=== PATIENT | female | born 2000 | race Two or more races ===

== ENCOUNTER 2020-12-18 12:42 | Observation (INO) | payer MEDICAID, OTHER ==
[2020-12-18] MEDS ORDERED: PREN-96 PO (14:53)
== END 2020-12-18 15:14 | disposition home or self-care (01) ==
LOC: LDRP 12:42
PROVIDERS: ADMIT Obstetrics & Gynecology; ATTEND Obstetrics & Gynecology
DX: O26.893 Other specified pregnancy related conditions, third trimester (principal); R10.9 Unspecified abdominal pain; Z3A.32 32 weeks gestation of pregnancy
CPT/HCPCS: 59025; 76805; 76817; 81002; 84112; 94760; G0378; G0379; Q0114

== ENCOUNTER 2021-02-03 13:40 | Inpatient (IN) | payer MEDICAID ==
[~2021-02-03] VITALS: Ht 152.4 cm; Wt 59.0 kg
[~2021-02-03 13:40] MED LIST: PREN-96 PO
[2021-02-03] MEDS ORDERED: DERMOPLAST 60ML BOTTLE TOP PRN (16:00)
[2021-02-03] MEDS ORDERED: LIDOCAINE 2%HCL (LOCAL ANESTH.) INJ 20ML MDV IJ PRN ×2 (16:00→17:15)
[2021-02-03] MEDS ORDERED: PHISODERM TOP SOLN 240ML BTL TOP PRN ×2 (16:00→17:15)
[2021-02-03] MEDS ORDERED: WITCH HAZEL-GLYCERIN PAD TOP PRN ×2 (16:00→17:15)
[2021-02-03] MEDS ORDERED: PENICILLIN G POT 5MIL/D5 50ML 50 ML IV ONE (16:00)
[2021-02-03] MEDS ORDERED: BUTORPHANOL TARTRATE 2 MG/1 ML VIAL ONE (16:18)
[2021-02-03] MEDS ORDERED: LACT. RINGERS/OXYTOCIN 20UNITS 500 ML IV ONE ×2 (16:30→17:00)
[2021-02-03] MEDS: LACTATED RINGER'S 1,000 ML IV SCH ×2 (16:40→17:31)
[2021-02-03] MEDS ORDERED: PROMETHAZINE HCL 25 MG/ML 1ML IV PRN (17:15)
[2021-02-03] MEDS ORDERED: LACTATED RINGER'S 1,000 ML IV SCH (17:15)
[2021-02-03] MEDS ORDERED: BUTORPHANOL TARTRATE 2 MG/1 ML VIAL IV PRN ×2 (17:15)
[2021-02-03 17:21] LABS: Basophils # (auto) 0 10 ^3/uL (0-0.2); Eosinophils # (auto) 0 10 ^3/uL (0-0.8); Hemoglobin 8.4 g/dL (12.2-16.2); Lymphocytes # (auto) 0.7 10 ^3/uL (0.4-5.4)
[2021-02-03 17:23] LABS: Basophils % (auto) 0.4 % (0.0-2.0); Hematocrit 27.6 % (36.0-46.0); Lymphocytes % (auto) 4.9 % (10.0-50.0); Mean Corpuscular Hemoglobin 17.5 pg (28.0-32.0); Mean Corpuscular Hgb Conc. 30.2 g/dL (32.0-36.0); Mean Corpuscular Volume 57.8 fL (80.0-100.0); Monocytes # (auto) 0.5 10 ^3/uL (0-1.3); Monocytes % (auto) 3.3 % (0.0-12.0); Neutrophils # (auto) 12.7 10 ^3/uL (1.6-8.6); Neutrophils % (auto) 91.4 % (37.0-80.0); Nucleated Red Blood Cells % 0.1 %; Red Blood Cells 4.78 10^6/uL (4.0-5.20); Red Cell Distribution Width 18.5 % (11.8-14.3); White Blood Cell 13.9 10^3/uL (4.4-10.8)
[2021-02-03 17:36] LABS: Albumin 2.9 g/dL (3.4-5.0); BUN/Creatinine Ratio 10.7; Calcium 8.8 mg/dL (8.5-10.1); Potassium 3.9 mmol/L (3.5-5.1)
[2021-02-03 17:38] LABS: Bilirubin, Total 0.7 mg/dL (0.2-1.0); Total Protein 7.4 g/dL (6.4-8.2)
[2021-02-03 17:42] LABS: Urine Bacteria FEW /hpf (None Seen); Urine Blood 2+ /uL (Negative); Urine Budding Yeast FEW /hpf (None Seen); Urine Mucus FEW (None Seen); Urine Specific Gravity 1.027 (1.001-1.035); Urine WBC 128 /hpf (0 - 5)
[2021-02-03 17:42] LABS: INR 0.99 (0.9-1.15); Partial Thromboplastin Time 24.8 sec (23.6-33.0)
[2021-02-03 17:43] LABS: Alcohol, Urine < 3.0 mg/dL (0-10); Amphetamine Screen, Urine NEGATIVE (NEGATIVE); Barbiturate Scree,Urine NEGATIVE (NEGATIVE); Benzodiazephine Screen, Urine NEGATIVE (NEGATIVE); Cannabinoid Screen, Urine POSITIVE (NEGATIVE); Cocaine Screen, Urine NEGATIVE (NEGATIVE); Opiate Scree,Urine NEGATIVE (NEGATIVE); Phencyclidine Screen, Urine NEGATIVE (NEGATIVE)
[2021-02-03] MEDS ORDERED: LIDOCAINE HCL 2 %PF INJ 10ML AMP IJ ONE (18:15)
[2021-02-03] MEDS ORDERED: LIDOCAINE 2%HCL (LOCAL ANESTH.) INJ 20ML MDV IJ ONE (18:15)
[2021-02-03] MEDS ORDERED: NALOXONE HCL 0.4 MG/ML VIAL IV ONE ×2 (18:15→19:30)
[2021-02-03] MEDS ORDERED: ePHEDrine SULFATE 50 MG/ML AMP IV ONE ×2 (18:15→19:30)
[2021-02-03] MEDS ORDERED: ROPIVACAINE HCL 200 ML EPI SCH (18:15)
[2021-02-03] MEDS ORDERED: fentaNYL CITRATE 100 MCG/2 ML VL IV ONE (18:15)
[2021-02-03] MEDS ORDERED: LIDOCAINE 1%-Mpf/Epinephrine 1:200,000 IJ ONE (18:15)
[2021-02-03] MEDS ORDERED: LACTATED RINGER'S 500 ML IV ONE (19:30)
[2021-02-03] MEDS ORDERED: SODIUM CHLORIDE 0.9% 500 ML IV PRN (19:30)
[2021-02-03] MEDS ORDERED: PENICILLIN G POTASSIUM 2,500,000 UNITS in D5W 5% 50 ML IV SCH ×2 (20:00→21:15)
[2021-02-03] MEDS ORDERED: PENICILLIN G POT 5MILLION UNIT VIAL ONE (22:17)
[2021-02-03] MEDS ORDERED: STERILE WATER 10 ML ONE (22:18)
[2021-02-03] MEDS ORDERED: LACT. RINGERS/OXYTOCIN 20UNITS 1,000 ML IV SCH (23:15)
[2021-02-04] MEDS ORDERED: ONDANSETRON ODT 4 MG TAB PO PRN (01:00)
[2021-02-04] MEDS: IBUPROFEN 800 MG TAB PO SCH ×2 (03:38→09:37)
[2021-02-04 06:06] LABS: RPR Non Reactive (Non Reactive)
[2021-02-04 06:30] VITALS: BP 98/56
[2021-02-04] MEDS ORDERED: FERROUS SULFATE 325mg EC TAB PO SCH (07:00)
[2021-02-04 07:07] LABS: Rubella Antibodies, IgG 1.13 index (Immune >0.99)
[2021-02-04] MEDS: FERROUS SULFATE 325mg EC TAB PO SCH (09:38)
[2021-02-04 10:57] VITALS: BP 96/62
[2021-02-04] MEDS ORDERED: TETANUS-DIPTH-ACEL PERTUSSIS 0.5ML SYR Tdap IM ONE (13:45)
[2021-02-04] MEDS: ACETAMINOPHEN 325 MG TAB PO PRN (14:01)
[2021-02-04 15:00] VITALS: BP 98/62
[2021-02-04] MEDS: IBUPROFEN 600 MG TAB PO SCH ×2 (15:00→21:32)
[2021-02-04 19:00] VITALS: BP 94/63
[2021-02-04] MEDS ORDERED: DOCUSATE SOD 100 MG CAP PO SCH (22:00)
[2021-02-04 22:30] VITALS: BP 95/56
[2021-02-05 03:00] VITALS: BP 91/62
[2021-02-05] MEDS: IBUPROFEN 600 MG TAB PO SCH ×2 (03:07→05:54)
[2021-02-05] MEDS ORDERED: IBUP600T27 PO (03:43)
[2021-02-05] MEDS ORDERED: TUCKS TOP (03:43)
[2021-02-05] MEDS ORDERED: DOCU-94 PO (03:43)
[2021-02-05] MEDS ORDERED: DIBU1OIN RE (03:44)
[2021-02-05] MEDS: ACETAMINOPHEN 325 MG TAB PO PRN (04:03)
[2021-02-05 06:45] VITALS: BP 101/64
[2021-02-05] MEDS: FERROUS SULFATE 325mg EC TAB PO SCH (08:00)
== END 2021-02-05 08:05 | disposition home or self-care (01) | DRG 560 ==
LOC: LDRP 13:40 → OBSVTOIN 16:00 → LDRP 16:09
PROVIDERS: ADMIT Obstetrics & Gynecology Obstetrics; ATTEND Obstetrics & Gynecology Obstetrics
PROC: 10E0XZZ Delivery of Products of Conception, External Approach (ICD-10-PCS; principal; 2021-02-04)
PROC: 0HQ9XZZ Repair Perineum Skin, External Approach (ICD-10-PCS; 2021-02-04)
PROC: 0W8NXZZ Division of Female Perineum, External Approach (ICD-10-PCS; 2021-02-04)
PROC: 3E0R3BZ Introduction of Anesthetic Agent into Spinal Canal, Percutaneous Approach (ICD-10-PCS; 2021-02-04)
PROC: 00HU33Z Insertion of Infusion Device into Spinal Canal, Percutaneous Approach (ICD-10-PCS; 2021-02-04)
DX: O99.824 Streptococcus B carrier state complicating childbirth (principal); Z37.0 Single live birth; O99.344 Other mental disorders complicating childbirth; F41.9 Anxiety disorder, unspecified; O70.0 First degree perineal laceration during delivery; Z20.822 Contact with and (suspected) exposure to COVID-19; Z3A.39 39 weeks gestation of pregnancy; Z88.8 Allergy status to other drugs, medicaments and biological substances
CPT/HCPCS: 36415; 59025; 59409; 80053; 80307; 81001; 81002; 85025; 85610; 85730; 86592; 86703; 86762; 86850; 86900; 86901; 87340; 87426; 94760; 96360; 96361; 96365; 96366; 96374; G0378; J2540; J2590; J7060